=== PATIENT | male | born 1980 | race Caucasian/White ===

== ENCOUNTER 2017-09-05 12:44 | Day surgery (SDC) | payer BC ==
[~2017-09-05] VITALS: Ht 170.2 cm; Wt 90.2 kg
[2017-09-05 13:03] VITALS: BP 124/74; PULSE 84; TEMP 98.6
[2017-09-05] MEDS ORDERED: PRILOSEC 20MG20 MG PO (13:08)
[2017-09-05] MEDS ORDERED: PROTONIX 40MG T40 MG PO (15:05)
[2017-09-05] MEDS ORDERED: BENTYL 10MG10 MG/CAP PO (15:06)
[2017-09-05 15:15] VITALS: BP 119/82; PULSE 95; TEMP 98.4
[2017-09-05 15:30] VITALS: BP 117/86; PULSE 83
[2017-09-05 15:45] VITALS: BP 112/78; PULSE 76
[2017-09-05 16:00] VITALS: BP 119/79; PULSE 84
[2017-09-05 16:15] VITALS: BP 112/79; PULSE 84
== END 2017-09-05 16:35 | disposition home or self-care (01) ==
LOC: SDCO 12:44
DX: K64.0 First degree hemorrhoids (principal); K22.2 Esophageal obstruction; K44.9 Diaphragmatic hernia without obstruction or gangrene; K29.30 Chronic superficial gastritis without bleeding; K92.1 Melena; F17.210 Nicotine dependence, cigarettes, uncomplicated
CPT/HCPCS: OP; C1726; J2704; J7030

== ENCOUNTER → 2020-10-22 | Outpatient (CLI) | payer OTHER ==
[~2020-10-22] MED LIST: BENTYL 10MG10 MG/CAP PO; PRILOSEC 20MG20 MG PO; PROTONIX 40MG T40 MG PO
== END ==
LOC: COL.VAS 10:54
DX: M79.89 Other specified soft tissue disorders (principal)